=== PATIENT | female | born 1970 | race Asian ===

== ENCOUNTER 2016-09-20 09:30 | Outpatient (CLI) | payer OTHER ==
[~2016-09-20 09:30] MED LIST: ALBUAER5 INH; ALPR0.5T24 PO; CARV25TA PO; COLC0.6T6 PO; COUMADIN5 MG PO; DICL1GEL2 TOP; FE SULFATE PO; FUROSEMIDE80 MG PO; HYDR-2748 PO; HYDR5TAB9 PO; LAMISIL AT11 EX; LEVO0.0529 PO; LISI20TA11 PO; MACROBID100 MG OR; MILLIPRED5 MG OR; NIFEDIAC CC90 MG OR; PRINIVIL20 MG OR; SIMV40TA57; SIMV40TA57 PO; WARFARIN7.5 MG PO
[2016-09-20 10:25] LABS: POTASSIUM 3.6 mmol/L (3.6-5.2)
[2016-09-20 10:43] LABS: PLATELET COUNT 201 K/uL (152-353)
== END 2016-09-20 19:15 | disposition home or self-care (01) ==
LOC: LABW 09:30
PROVIDERS: Physician Assistant
DX: I48.0 Paroxysmal atrial fibrillation (principal); M10.00 Idiopathic gout, unspecified site; E03.8 Other specified hypothyroidism; I10 Essential (primary) hypertension
CPT/HCPCS: 36415; 80053; 80061; 83036; 84439; 84443; 84550; 85027; 85610

== ENCOUNTER 2016-10-20 16:41 | Emergency (ER) | payer OTHER ==
[~2016-10-20] VITALS: Ht 177.8 cm; Wt 121.2 kg
[2016-10-20 16:51] VITALS: BP 126/79; TEMP 98
== END 2016-10-20 17:33 | disposition home or self-care (01) ==
LOC: ED 16:41
DX: B02.9 Zoster without complications (principal)
CPT/HCPCS: 99281

== ENCOUNTER 2018-03-07 15:55 | Emergency (ER) | payer OTHER ==
[~2018-03-07] VITALS: Ht 175.3 cm; Wt 114.8 kg
[2018-03-07 16:00] VITALS: TEMP 100.5
[2018-03-07 17:49] VITALS: BP 122/72
== END 2018-03-07 17:49 | disposition home or self-care (01) ==
LOC: ED 15:55
DX: J18.9 Pneumonia, unspecified organism (principal)
CPT/HCPCS: 36415; 87502; 99283

== ENCOUNTER 2018-06-04 17:18 | Outpatient (CLI) | payer OTHER | END 2018-06-04 20:10 | disposition home or self-care (01) | LOC: LABW 17:18 | DX: I48.2 Chronic atrial fibrillation (principal) | CPT/HCPCS: 36415; 85610 ==

== ENCOUNTER 2018-07-31 14:35 | Outpatient (CLI) | payer OTHER ==
[2018-07-31 15:30] LABS: PLATELET COUNT 180 K/uL (152-353)
[2018-07-31 15:34] LABS: POTASSIUM 3.5 mmol/L (3.6-5.2)
== END 2018-07-31 19:22 | disposition home or self-care (01) ==
LOC: LABW 14:35
PROVIDERS: Internal Medicine
DX: E03.9 Hypothyroidism, unspecified (principal); I10 Essential (primary) hypertension; M32.9 Systemic lupus erythematosus, unspecified; D68.9 Coagulation defect, unspecified
CPT/HCPCS: 36415; 80053; 80061; 82306; 84443; 85027; 85610

== ENCOUNTER 2018-09-29 23:32 | Emergency (ER) | payer OTHER ==
[~2018-09-29] VITALS: Ht 175.3 cm; Wt 119.8 kg
[2018-09-30 00:37] VITALS: BP 128/78; TEMP 98.6
== END 2018-09-30 00:38 | disposition home or self-care (01) ==
LOC: ED 23:32
DX: S90.31XA Contusion of right foot, initial encounter (principal); W20.8XXA Other cause of strike by thrown, projected or falling object, initial encounter; Y92.003 Bedroom of unspecified non-institutional (private) residence as the place of occurrence of the external cause
CPT/HCPCS: 99283

== ENCOUNTER 2019-09-14 03:59 | Emergency (ER) | payer OTHER ==
[~2019-09-14] VITALS: Ht 175.3 cm; Wt 118.8 kg
[2019-09-14 04:54] VITALS: BP 142/94; TEMP 98.7
== END 2019-09-14 04:54 | disposition home or self-care (01) ==
LOC: ED 03:59
DX: K08.89 Other specified disorders of teeth and supporting structures (principal); K05.10 Chronic gingivitis, plaque induced
CPT/HCPCS: 96372; 99283; J1885

== ENCOUNTER 2020-06-08 16:11 | Emergency (ER) | payer OTHER ==
[~2020-06-08] VITALS: Ht 175.3 cm; Wt 118.8 kg
[2020-06-08 16:19] VITALS: BP 125/72; TEMP 98.7
== END 2020-06-08 18:26 | disposition home or self-care (01) ==
LOC: ED 16:11
DX: M10.9 Gout, unspecified (principal); M17.12 Unilateral primary osteoarthritis, left knee
CPT/HCPCS: 84550; 96372; 99283; J1885

== ENCOUNTER 2020-10-04 09:24 | Outpatient (CLI) | payer OTHER ==
[2020-10-04 10:22] LABS: PLATELET COUNT 307 K/uL (152-353)
[2020-10-04 11:31] LABS: POTASSIUM 3.8 mmol/L (3.6-5.2)
== END 2020-10-04 19:19 | disposition home or self-care (01) ==
LOC: LABW 09:24
PROVIDERS: ATTEND Internal Medicine
DX: N18.32 Chronic kidney disease, stage 3b (principal)
CPT/HCPCS: 36415; 80053; 81000; 84550; 85027

== ENCOUNTER 2021-02-21 17:22 | Emergency (ER) | payer OTHER ==
[~2021-02-21] VITALS: Ht 175.3 cm; Wt 118.8 kg
[2021-02-21 17:43] LABS: PLATELET COUNT 168 K/uL (152-353)
[2021-02-21 18:02] LABS: PARTIAL THROMBOPLASTIN TIME 32.3 SECONDS (24.5-33.6)
[2021-02-21 18:26] LABS: POTASSIUM 5.3 mmol/L (3.6-5.2)
[2021-02-21 21:20] VITALS: BP 162/104; TEMP 98.5
== END 2021-02-21 21:20 | disposition short-term general hospital (02) ==
LOC: ED 17:22
PROVIDERS: Hospitalist
PROC: 0T9B70Z Drainage of Bladder with Drainage Device, Via Natural or Artificial Opening (ICD-10-PCS; principal; 2021-02-21)
DX: I50.9 Heart failure, unspecified (principal); I48.20 Chronic atrial fibrillation, unspecified; J18.9 Pneumonia, unspecified organism; I10 Essential (primary) hypertension; Z11.52 Encounter for screening for COVID-19
CPT/HCPCS: 36415; 36600; 51702; 80053; 81000; 82550; 82805; 83605; 83880; 84484; 85027; 85610; 85730; 87040; 87635; 93005; 96360; 96366; 96375; 96376; 99285; J0360; J1940; J1956; J2060; J2405; J3490; U0003